=== PATIENT | female | born 2005 | race Caucasian/White ===

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

== ENCOUNTER 2024-02-11 13:37 | Emergency (ER) | payer OTHER ==
[~2024-02-11 13:37] MED LIST changes: +AMOX-CLAV 875-1 EACH PO
[2024-02-11] MEDS ORDERED: PREDNISONE20 M1 PO (13:59)
[2024-02-11] MEDS ORDERED: Dexamethasone Sodium Phospha 20 MG/5 ML VIAL IM ONE (14:00)
== END 2024-02-11 14:09 | disposition home or self-care (01) ==
LOC: ED 13:37
DX: L23.7 Allergic contact dermatitis due to plants, except food (principal); J45.909 Unspecified asthma, uncomplicated; Z88.8 Allergy status to other drugs, medicaments and biological substances